=== PATIENT | female | born 2000 | race Two or more races ===

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

== ENCOUNTER 2021-05-10 13:44 | Outpatient (CLI) | payer OTHER ==
[~2021-05-10 13:44] MED LIST changes: +ALBUTEROL1.25 MG/3
== END 2021-05-10 15:30 | disposition home or self-care (01) ==
LOC: PRENATAL 13:44
PROVIDERS: ATTEND Obstetrics & Gynecology Maternal & Fetal Medicine
DX: O35.0XX1 Maternal care for (suspected) central nervous system malformation in fetus, fetus 1 (principal); O35.3XX1 Maternal care for (suspected) damage to fetus from viral disease in mother, fetus 1; O98.512 Other viral diseases complicating pregnancy, second trimester; Z36.89 Encounter for other specified antenatal screening; Z3A.23 23 weeks gestation of pregnancy

== ENCOUNTER 2021-07-26 17:11 | Inpatient (IN) | payer OTHER ==
[~2021-07-26] VITALS: Ht 165.1 cm; Wt 93.0 kg
[2021-07-26] MEDS ORDERED: PRENATAL TABLE1 EAC1 PO (19:36)
[2021-07-26] MEDS ORDERED: FOLIC ACID0.8 M1 PO (19:37)
== END 2021-08-01 11:41 | DRG 832 ==
LOC: LDR 17:11 → OB/GYN 07-27 23:29
PROVIDERS: ADMIT Obstetrics & Gynecology; ATTEND Obstetrics & Gynecology
PROC: 4A1HXFZ Monitoring of Products of Conception, Cardiac Rhythm, External Approach (ICD-10-PCS; principal; 2021-07-26)
PROC: BY4FZZZ Ultrasonography of Third Trimester, Single Fetus (ICD-10-PCS; 2021-07-26)
DX: O47.03 False labor before 37 completed weeks of gestation, third trimester (principal); O26.873 Cervical shortening, third trimester; Z3A.34 34 weeks gestation of pregnancy

== ENCOUNTER 2021-08-01 13:05 | Outpatient (CLI) | payer OTHER ==
[~2021-08-01 13:05] MED LIST changes: +FOLIC ACID0.8 M1 PO; +PRENATAL TABLE1 EAC1 PO
== END 2021-08-01 13:30 | disposition home or self-care (01) ==
LOC: PPH VACUNA 13:05
PROVIDERS: ATTEND Emergency Medicine Pediatric Emergency Medicine
DX: Z23 Encounter for immunization (principal)

== ENCOUNTER 2021-08-04 19:19 | Outpatient (CLI) | payer OTHER ==
[2021-08-05] MEDS ORDERED: AMOX1TAB5 PO (09:56)
== END 2021-08-05 12:52 | disposition home or self-care (01) ==
LOC: OBS/DEL 19:19
PROVIDERS: ATTEND Obstetrics & Gynecology
DX: O26.873 Cervical shortening, third trimester (principal); O23.33 Infections of other parts of urinary tract in pregnancy, third trimester; N39.0 Urinary tract infection, site not specified; O99.213 Obesity complicating pregnancy, third trimester; E66.8 Other obesity; Z3A.35 35 weeks gestation of pregnancy; Z37.0 Single live birth; O60.03 Preterm labor without delivery, third trimester

== ENCOUNTER 2021-08-29 07:24 | Inpatient (IN) | payer OTHER ==
[~2021-08-29] VITALS: Ht 165.1 cm; Wt 96.2 kg
[~2021-08-29 07:24] MED LIST changes: +AMOX1TAB5 PO
== END 2021-08-31 19:04 | disposition home or self-care (01) | DRG 807 ==
LOC: SURG-SUITE 07:24 → LDR 07:24 → SURG-SUITE 20:04
PROVIDERS: ADMIT Obstetrics & Gynecology; ATTEND Obstetrics & Gynecology
PROC: 10E0XZZ Delivery of Products of Conception, External Approach (ICD-10-PCS; principal; 2021-08-29)
PROC: 0KQM0ZZ Repair Perineum Muscle, Open Approach (ICD-10-PCS; 2021-08-29)
PROC: 10907ZC Drainage of Amniotic Fluid, Therapeutic from Products of Conception, Via Natural or Artificial Opening (ICD-10-PCS; 2021-08-29)
PROC: 3E0P7VZ Introduction of Hormone into Female Reproductive, Via Natural or Artificial Opening (ICD-10-PCS; 2021-08-29)
PROC: 4A1HXFZ Monitoring of Products of Conception, Cardiac Rhythm, External Approach (ICD-10-PCS; 2021-08-29)
DX: O70.1 Second degree perineal laceration during delivery (principal); Z37.0 Single live birth; O99.824 Streptococcus B carrier state complicating childbirth; Z3A.39 39 weeks gestation of pregnancy

== ENCOUNTER 2023-03-28 15:54 | Outpatient (CLI) | payer OTHER | END 2023-03-28 18:03 | disposition home or self-care (01) | LOC: PRENATAL 15:54 | PROVIDERS: ATTEND Obstetrics & Gynecology Maternal & Fetal Medicine | DX: O36.80X0 Pregnancy with inconclusive fetal viability, not applicable or unspecified (principal); Z36.0 Encounter for antenatal screening for chromosomal anomalies; O28.3 Abnormal ultrasonic finding on antenatal screening of mother; Z3A.13 13 weeks gestation of pregnancy ==